=== PATIENT | female | born 1945 ===

== ENCOUNTER → 2022-07-01 13:34 | Outpatient (CLI) | payer MEDICARE, SELFPAY ==
--- NOTE | ~2022-07-01 | MR_ITS ---
EXAMINATION: MR knee RT wo con DATE: 07/01/2022 14:12 INDICATION: Right knee pain TECHNIQUE: Magnetic resonance imaging (MRI) of the right knee was performed without intravenous contr ast. Sequences included coronal PD-weighted FSE, coronal PD-weighted FS FSE, sagittal T2-weighted FS E, sagittal PD-weighted FS FSE and axial PD weighted fat saturated FSE. COMPARISON: None. FINDINGS: Medial compartment: Medial meniscus is normal. Small region of partial-thickness chondral fissuring at the lateral anteri or weightbearing medial femoral condyle. Lateral compartment: Lateral meniscus is normal. Partial-thickness chondral ulceration at the central weightbearing latera l femoral condyle partial thickness chondral fissuring at the anterior weightbearing lateral femoral condyle and lateral tibial plateau. Patellofemoral compartment: Partial-thickness chondral fissuring with underlying mild cortical irregularity at the inferior aspec t of the medial trochlea. Chondral ulceration involving greater than 50% the cartilage thickness at t he cephalad half of the medial patellar facet and patellar apical ridge with tiny focus of edema-like subarticular signal change at the cephalad apical ridge. Partial-thickness chondral fissuring at the lateral patellar facet. Ligaments and tendons: Anterior and posterior cruciate ligaments are normal. The medial and fibular collateral ligament comp lexes are normal. The extensor mechanism is normal. The visualized medial and lateral hamstring tendo ns as well as the iliotibial band are normal. Fluid: Small right knee joint effusion. No loose osteochondral bodies identified. Osseous/other: Normal marrow signal aside from a tiny focus of edema-like signal change at the patellar apical ridge . No fracture or pathologic marrow replacing process. IMPRESSION: 1. 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 2. Small right knee joint effusion. Reviewed, dictated and finalized at location L. [employer] IMPRESSION: 1. Mild tricompartmental osteoarthritis with small region of moderate grade cho ndral malacia the medial lateral compartments and moderate and high-grade chond romalacia at the patellofemoral compartment. 2. Small right knee joint effusion.
== END ==
PROVIDERS: PCP Emergency Medicine; Visit Provider Orthopaedic Surgery
DX: M17.11 Unilateral primary osteoarthritis, right knee (principal); M25.461 Effusion, right knee
CPT/HCPCS: 73721